=== PATIENT | female | born 1985 | race Caucasian/White ===

== ENCOUNTER 2017-10-11 20:19 | Outpatient (CLI) | payer OTHER ==
[2017-10-11 21:08] LABS: ADD MAN DIFF? NO
[2017-10-11 21:09] LABS: WHITE BLOOD COUNT 7.1 10^3/ul (4.8-10.8)
[2017-10-11 21:09] LABS: BASOPHILS % 0.3 % (0.0-2.0); EOSINOPHILS # 0.1 10^3/ul (0.0-0.5); HEMOGLOBIN 11.4 g/dl (12.0-16.0); LYMPHOCYTES # 0.6 10^3/ul (0.8-2.9); LYMPHOCYTES % 8.4 % (15.0-51.0); MEAN CORPUSCULAR HEMOGLOBIN 27.5 pg (29.0-33.0); MEAN CORPUSCULAR HGB CONC 31.7 g/dl (32.0-37.0); MEAN CORPUSCULAR VOLUME 86.7 fl (82.0-101.0); MEAN PLATELET VOLUME 10.3 fl (7.4-10.4); MONOCYTE # 0.4 10^3/ul (0.3-0.9); NEUTROPHILS % 83.9 % (39.0-77.0); PLATELET COUNT 246 10^3/UL (140-415); RED BLOOD COUNT 4.15 10^6/ul (4.20-5.40); RED CELL DISTRIBUTION WIDTH 12.5 % (11.5-14.5)
[2017-10-11 21:19] LABS: INR 0.93; PROTIME 12.5 Sec (11.9-14.9)
[2017-10-11 21:20] LABS: PARTIAL THROMBOPLASTIN TIME 28.4 Sec (25.0-35.0)
[2017-10-11] MEDS: LACTATED RINGER'S 1,000 ML IV (21:20)
[2017-10-11 21:22] LABS: ADD UMIC YES; UR ASCORBIC ACID NEGATIVE (NEGATIVE); UR BILIRUBIN (Dip) NEGATIVE (NEGATIVE); UR BLOOD (Dip) NEGATIVE (NEGATIVE); UR CLARITY SLIGHTLY CLOUDY (CLEAR); UR COLOR YELLOW (YELLOW); UR GLUCOSE (Dip) NEGATIVE (NEGATIVE); UR KETONES (Dip) NEGATIVE (NEGATIVE); UR LEUKOCYTE ESTERASE (Dip) 2+ Leu/ul (NEGATIVE); UR MUCUS FEW /HPF (NONE SEEN); UR NITRITE (Dip) NEGATIVE (NEGATIVE); UR RBC 1 /HPF (0-5); UR SPECIFIC GRAVITY (Dip) 1.029 (1.003-1.030); UR SQUAMOUS EPITHELIAL CELL FEW /HPF (FEW); UR TOTAL PROTEIN (Dip) 1+ mg/dl (NEGATIVE); UR UROBILINOGEN (Dip) 1+ mg/dL (NEGATIVE); UR WBC 7 /HPF (0-5)
[2017-10-11 21:23] LABS: ALANINE AMINOTRANSFERASE 48 IU/L (13-69); ALBUMIN 3.4 g/dl (3.3-4.9); ALBUMIN/GLOBULIN RATIO 0.91; ALKALINE PHOSPHATASE 258 IU/L (42-121); ANION GAP 16 (8-16); ASPARTATE AMINO TRANSFERASE 24 IU/L (15-46); BLOOD UREA NITROGEN 15 mg/dl (7-20); CALCIUM 9.1 mg/dl (8.4-10.2); CARBON DIOXIDE 23 mmol/L (21-31); CHLORIDE 106 mmol/L (97-110); CREATININE 0.79 mg/dl (0.44-1.00); GLUCOSE 101 mg/dl (70-220); POTASSIUM 4.1 mmol/L (3.5-5.1); SODIUM 141 mmol/L (135-144); TOTAL PROTEIN 7.1 g/dl (6.1-8.1); URIC ACID 4.6 mg/dl (3.1-7.9)
== END 2017-10-11 22:30 | disposition home or self-care (01) ==
LOC: OBT 20:19 → L-D 20:21 → OBT 22:30
DX: O10.913 Unspecified pre-existing hypertension complicating pregnancy, third trimester (principal); O26.893 Other specified pregnancy related conditions, third trimester; L29.9 Pruritus, unspecified; R06.02 Shortness of breath; R51 Headache; R06.2 Wheezing; Z3A.34 34 weeks gestation of pregnancy
CPT/HCPCS: 36415; 76818; 80053; 81001; 84560; 85025; 85384; 85610; 85730; 96360

== ENCOUNTER 2017-10-11 22:29 | Emergency (ER) | payer OTHER ==
[2017-10-12] MEDS: ACETAMINOPHEN 500 MG TAB PO (00:03)
[2017-10-12] MEDS: LEVALBUTEROL (NEB) 1.25 MG/0.5 ML AMP HHN (00:19)
[2017-10-12 01:16] LABS: ADD UMIC YES; UR ASCORBIC ACID NEGATIVE (NEGATIVE); UR BACTERIA FEW /HPF (NONE SEEN); UR BILIRUBIN (Dip) NEGATIVE (NEGATIVE); UR BLOOD (Dip) NEGATIVE (NEGATIVE); UR CLARITY CLEAR (CLEAR); UR COLOR YELLOW (YELLOW); UR GLUCOSE (Dip) NEGATIVE (NEGATIVE); UR KETONES (Dip) NEGATIVE (NEGATIVE); UR LEUKOCYTE ESTERASE (Dip) 1+ Leu/ul (NEGATIVE); UR NITRITE (Dip) NEGATIVE (NEGATIVE); UR RBC 1 /HPF (0-5); UR SPECIFIC GRAVITY (Dip) 1.026 (1.003-1.030); UR SQUAMOUS EPITHELIAL CELL FEW /HPF (FEW); UR TOTAL PROTEIN (Dip) 1+ mg/dl (NEGATIVE); UR UROBILINOGEN (Dip) 1+ mg/dL (NEGATIVE); UR WBC 11 /HPF (0-5)
== END 2017-10-12 03:19 | disposition home or self-care (01) ==
LOC: FTE 10-12 03:19
DX: J06.9 Acute upper respiratory infection, unspecified (principal); N39.0 Urinary tract infection, site not specified; E66.01 Morbid (severe) obesity due to excess calories; I10 Essential (primary) hypertension; Z68.41 Body mass index [BMI] 40.0-44.9, adult; Z79.82 Long term (current) use of aspirin
CPT/HCPCS: 81001; 87400; 93005; 94664; 99284-25

== ENCOUNTER 2017-11-09 03:09 | Inpatient (IN) | payer OTHER ==
[2017-11-09] MEDS: LACTATED RINGER'S 1,000 ML IV ×3 (04:10→19:15)
[2017-11-09 04:21] LABS: ADD MAN DIFF? NO
[2017-11-09 04:23] LABS: BASOPHILS % 0.3 % (0.0-2.0); EOSINOPHILS # 0.1 10^3/ul (0.0-0.5); HEMATOCRIT 36.3 % (37.0-47.0); HEMOGLOBIN 11.7 g/dl (12.0-16.0); LYMPHOCYTES % 16.7 % (15.0-51.0); MEAN CORPUSCULAR HEMOGLOBIN 27.1 pg (29.0-33.0); MEAN CORPUSCULAR HGB CONC 32.2 g/dl (32.0-37.0); MEAN PLATELET VOLUME 10.8 fl (7.4-10.4); MONOCYTE # 0.4 10^3/ul (0.3-0.9); MONOCYTES % 6.7 % (0.0-11.0); NEUTROPHIL # 4.3 10^3/ul (1.6-7.5); NEUTROPHILS % 73.8 % (39.0-77.0); PLATELET COUNT 255 10^3/UL (140-415); RED BLOOD COUNT 4.32 10^6/ul (4.20-5.40); RED CELL DISTRIBUTION WIDTH 14.7 % (11.5-14.5)
[2017-11-09 04:23] LABS: WHITE BLOOD COUNT 5.9 10^3/ul (4.8-10.8)
[2017-11-09 04:42] LABS: ADD UMIC YES; UR ASCORBIC ACID NEGATIVE (NEGATIVE); UR BACTERIA FEW /HPF (NONE SEEN); UR BILIRUBIN (Dip) NEGATIVE (NEGATIVE); UR BLOOD (Dip) NEGATIVE (NEGATIVE); UR CLARITY SLIGHTLY CLOUDY (CLEAR); UR COLOR YELLOW (YELLOW); UR GLUCOSE (Dip) NEGATIVE (NEGATIVE); UR KETONES (Dip) NEGATIVE (NEGATIVE); UR LEUKOCYTE ESTERASE (Dip) NEGATIVE Leu/ul (NEGATIVE); UR MUCUS FEW /HPF (NONE SEEN); UR NITRITE (Dip) NEGATIVE (NEGATIVE); UR RBC 1 /HPF (0-5); UR SPECIFIC GRAVITY (Dip) 1.023 (1.003-1.030); UR SQUAMOUS EPITHELIAL CELL FEW /HPF (FEW); UR TOTAL PROTEIN (Dip) 2+ mg/dl (NEGATIVE); UR UROBILINOGEN (Dip) 1+ mg/dL (NEGATIVE); UR WBC 2 /HPF (0-5)
[2017-11-09 04:45] LABS: INR 0.86; PARTIAL THROMBOPLASTIN TIME 28.3 Sec (25.0-35.0); PROTIME 11.8 Sec (11.9-14.9); PT RATIO 0.9
[2017-11-09 04:50] LABS: ALANINE AMINOTRANSFERASE 58 IU/L (13-69); ALBUMIN 3.4 g/dl (3.3-4.9); ALKALINE PHOSPHATASE 334 IU/L (42-121); ANION GAP 15 (8-16); ASPARTATE AMINO TRANSFERASE 38 IU/L (15-46); BILIRUBIN,INDIRECT 0.2 mg/dl (0-1.1); BILIRUBIN,TOTAL 0.2 mg/dl (0.2-1.3); BLOOD UREA NITROGEN 16 mg/dl (7-20); CALCIUM 8.9 mg/dl (8.4-10.2); CARBON DIOXIDE 20 mmol/L (21-31); CHLORIDE 107 mmol/L (97-110); CREATININE 0.64 mg/dl (0.44-1.00); GLUCOSE 91 mg/dl (70-220); POTASSIUM 3.7 mmol/L (3.5-5.1); SODIUM 138 mmol/L (135-144); TOTAL PROTEIN 6.8 g/dl (6.1-8.1); URIC ACID 4.7 mg/dl (3.1-7.9)
[2017-11-09] MEDS ORDERED: OXYTOCIN 30 UNITS/LR 500 ML IV ×2 (06:00→19:30)
[2017-11-09] MEDS ORDERED: METHYLERGONOVINE 0.2 MG INJ IM (06:00)
[2017-11-09] MEDS ORDERED: CARBOPROST 250 MCG INJ IM ×2 (06:00→19:30)
[2017-11-09] MEDS ORDERED: MISOPROSTOL 200 MCG TAB PR ×2 (06:00→19:30)
[2017-11-09] MEDS ORDERED: OXYTOCIN 10 UNIT INJ ×2 (07:00→15:33)
[2017-11-09 10:52] LABS: RUPTURE FETAL MEMBRANES NEGATIVE (NEGATIVE)
[2017-11-09] MEDS ORDERED: BUTORPHANOL 2 MG INJ IV (11:00)
[2017-11-09 12:43] LABS: HEMOGLOBIN A1C 5.4 % (0-5.9)
[2017-11-09 13:33] LABS: FREE T4 (FREE THYROXINE) 0.85 ng/dl (0.79-2.35)
[2017-11-09 14:54] LABS: AMPHETAMINE/METHAMPHETAMINE Negative (NEGATIVE); BARBITURATES Negative (NEGATIVE); BENZODIAZEPINES Negative (NEGATIVE); CANNABINOIDS Negative (NEGATIVE); COCAINE Negative (NEGATIVE); OPIATES Negative (NEGATIVE)
[2017-11-09] MEDS ORDERED: morphine SULFATE/PF (10 MG/10 ML) INJ (15:32)
[2017-11-09] MEDS ORDERED: ONDANSETRON 4 MG INJ (15:32)
[2017-11-09] MEDS ORDERED: PHENYLephrine (100 MCG/ML) 5ML SYG ×2 (15:33→16:20)
[2017-11-09] MEDS ORDERED: METOCLOPRAMIDE 10 MG INJ (16:21)
[2017-11-09] MEDS ORDERED: ONDANSETRON 4 MG INJ IV (17:00)
[2017-11-09] MEDS ORDERED: morphine 2 MG INJ IV (17:00)
[2017-11-09] MEDS ORDERED: NALOXONE (0.4 MG/ML) INJ IV (17:00)
[2017-11-09] MEDS ORDERED: KETOROLAC 30 MG INJ IV (17:00)
[2017-11-09] MEDS: OXYTOCIN 30 UNITS/LR 500 ML IV (17:11)
[2017-11-09] MEDS: CEFAZOLIN 2 GM/50 ML (PMX) 50 ML IV (17:17)
[2017-11-09] MEDS: DIPHENHYDRAMINE 50 MG INJ IV (17:28)
[2017-11-09] MEDS ORDERED: ACETAMINOPHEN 500 MG TAB PO (19:30)
[2017-11-09] MEDS ORDERED: LANOLIN 7 GM TUBE TOP (19:30)
[2017-11-09 20:24] LABS: ADD MAN DIFF? NO
[2017-11-09 20:33] LABS: WHITE BLOOD COUNT 8.8 10^3/ul (4.8-10.8)
[2017-11-09 20:33] LABS: BASOPHILS % 0.1 % (0.0-2.0); EOSINOPHILS % 0.3 % (0.0-7.0); HEMATOCRIT 36.5 % (37.0-47.0); HEMOGLOBIN 11.8 g/dl (12.0-16.0); LYMPHOCYTES # 0.8 10^3/ul (0.8-2.9); LYMPHOCYTES % 8.6 % (15.0-51.0); MEAN CORPUSCULAR HEMOGLOBIN 27.8 pg (29.0-33.0); MEAN CORPUSCULAR HGB CONC 32.3 g/dl (32.0-37.0); MEAN CORPUSCULAR VOLUME 85.9 fl (82.0-101.0); MONOCYTE # 0.4 10^3/ul (0.3-0.9); MONOCYTES % 4.8 % (0.0-11.0); NEUTROPHIL # 7.5 10^3/ul (1.6-7.5); NEUTROPHILS % 85.4 % (39.0-77.0); PLATELET COUNT 245 10^3/UL (140-415); RED BLOOD COUNT 4.25 10^6/ul (4.20-5.40); RED CELL DISTRIBUTION WIDTH 14.6 % (11.5-14.5)
[2017-11-09] MEDS: ONDANSETRON 4 MG INJ IV (21:10)
[2017-11-09] MEDS: SERTRALINE 50 MG TAB PO (22:34)
[2017-11-10] MEDS: LACTATED RINGER'S 1,000 ML IV ×4 (00:20→20:30)
[2017-11-10] MEDS: ONDANSETRON 4 MG INJ IV (01:32)
[2017-11-10] MEDS: IBUPROFEN 600 MG TAB PO ×4 (06:00→17:17)
[2017-11-10] MEDS: SERTRALINE 50 MG TAB PO (08:24)
[2017-11-10] MEDS: DIPHENHYDRAMINE 50 MG CAP PO (10:17)
[2017-11-11] MEDS: HYDROCODONE/APAP (5/325) TAB PO (02:50)
[2017-11-11] MEDS: IBUPROFEN 600 MG TAB PO ×4 (06:50→17:09)
[2017-11-11] MEDS: SERTRALINE 50 MG TAB PO (08:44)
[2017-11-11 09:16] LABS: B-TYPE NATRIURETIC PEPTIDE 132 PG/ML (0-125)
[2017-11-11] MEDS: LACTATED RINGER'S 1,000 ML IV (16:30)
[2017-11-12] MEDS: IBUPROFEN 600 MG TAB PO ×3 (00:33→11:39)
[2017-11-12] MEDS: SERTRALINE 50 MG TAB PO (08:19)
[2017-11-12] MEDS: INFLUENZA VIRUS VACCINE 0.5 ML (DISPENSING) IM* (11:40)
[2017-11-12 12:06] LABS: ADD MAN DIFF? NO
[2017-11-12 12:11] LABS: BASOPHILS % 0.2 % (0.0-2.0); EOSINOPHILS # 0.1 10^3/ul (0.0-0.5); HEMATOCRIT 33.2 % (37.0-47.0); HEMOGLOBIN 10.7 g/dl (12.0-16.0); LYMPHOCYTES # 1.1 10^3/ul (0.8-2.9); LYMPHOCYTES % 19.6 % (15.0-51.0); MEAN CORPUSCULAR HEMOGLOBIN 27.6 pg (29.0-33.0); MEAN CORPUSCULAR HGB CONC 32.2 g/dl (32.0-37.0); MEAN CORPUSCULAR VOLUME 85.6 fl (82.0-101.0); MEAN PLATELET VOLUME 10.5 fl (7.4-10.4); MONOCYTE # 0.5 10^3/ul (0.3-0.9); MONOCYTES % 9.1 % (0.0-11.0); NEUTROPHIL # 3.7 10^3/ul (1.6-7.5); PLATELET COUNT 295 10^3/UL (140-415); RED BLOOD COUNT 3.88 10^6/ul (4.20-5.40); RED CELL DISTRIBUTION WIDTH 15.3 % (11.5-14.5)
[2017-11-12 12:11] LABS: WHITE BLOOD COUNT 5.4 10^3/ul (4.8-10.8)
[2017-11-12 12:32] LABS: ALANINE AMINOTRANSFERASE 73 IU/L (13-69); ALKALINE PHOSPHATASE 217 IU/L (42-121); ANION GAP 12 (8-16); ASPARTATE AMINO TRANSFERASE 43 IU/L (15-46); BLOOD UREA NITROGEN 16 mg/dl (7-20); CALCIUM 9.4 mg/dl (8.4-10.2); CARBON DIOXIDE 25 mmol/L (21-31); CHLORIDE 106 mmol/L (97-110); CREATININE 0.66 mg/dl (0.44-1.00); GLUCOSE 82 mg/dl (70-220); POTASSIUM 4.1 mmol/L (3.5-5.1); SODIUM 139 mmol/L (135-144); TOTAL PROTEIN 6.3 g/dl (6.1-8.1)
[2017-11-12] MEDS: LISINOPRIL 5 MG TAB PO (13:58)
== END 2017-11-12 17:43 | disposition home or self-care (01) | DRG 765 ==
LOC: OBT 03:09 → L-D 03:11 → OBT 05:56 → L-D 05:57 → MS4 20:54
PROC: 10D00Z1 Extraction of Products of Conception, Low, Open Approach (ICD-10-PCS; principal; 2017-11-09 15:00)
PROC: 3E0234Z Introduction of Serum, Toxoid and Vaccine into Muscle, Percutaneous Approach (ICD-10-PCS; 2017-11-09 15:30)
DX: O75.82 Onset (spontaneous) of labor after 37 completed weeks of gestation but before 39 completed weeks gestation, with delivery by (planned) cesarean section (principal); O24.12 Pre-existing type 2 diabetes mellitus, in childbirth; I42.9 Cardiomyopathy, unspecified; Z86.74 Personal history of sudden cardiac arrest; O10.92 Unspecified pre-existing hypertension complicating childbirth; O99.42 Diseases of the circulatory system complicating childbirth; Z68.42 Body mass index [BMI] 45.0-49.9, adult; O34.219 Maternal care for unspecified type scar from previous cesarean delivery; Z37.0 Single live birth; Z3A.38 38 weeks gestation of pregnancy; Z95.810 Presence of automatic (implantable) cardiac defibrillator; Z23 Encounter for immunization; I25.2 Old myocardial infarction; Z82.49 Family history of ischemic heart disease and other diseases of the circulatory system; O99.214 Obesity complicating childbirth; E66.01 Morbid (severe) obesity due to excess calories; O99.284 Endocrine, nutritional and metabolic diseases complicating childbirth; E78.5 Hyperlipidemia, unspecified
CPT/HCPCS: 36415; 71045; 76815; 76818; 80053; 80307; 81001; 82962; 83036; 83880; 84112; 84439; 84443; 84560; 85025; 85384; 85610; 85730; 86850; 86900; 86901; 86920; 88307; 90686; 93005; 93306; 96360; 99464

== ENCOUNTER 2018-06-26 20:13 | Emergency (ER) | payer OTHER ==
[2018-06-26 21:36] LABS: ADD MAN DIFF? NO
[2018-06-26 21:39] LABS: WHITE BLOOD COUNT 8.5 10^3/ul (4.8-10.8)
[2018-06-26 21:39] LABS: BASOPHILS % 0.2 % (0.0-2.0); EOSINOPHILS # 0.1 10^3/ul (0.0-0.5); EOSINOPHILS % 0.8 % (0.0-7.0); HEMATOCRIT 38.9 % (37.0-47.0); HEMOGLOBIN 12.1 g/dl (12.0-16.0); LYMPHOCYTES # 1.8 10^3/ul (0.8-2.9); LYMPHOCYTES % 21.5 % (15.0-51.0); MEAN CORPUSCULAR HEMOGLOBIN 27.9 pg (29.0-33.0); MEAN CORPUSCULAR HGB CONC 31.1 g/dl (32.0-37.0); MEAN CORPUSCULAR VOLUME 89.6 fl (82.0-101.0); MONOCYTE # 0.5 10^3/ul (0.3-0.9); MONOCYTES % 6.1 % (0.0-11.0); NEUTROPHILS % 71.2 % (39.0-77.0); PLATELET COUNT 286 10^3/UL (140-415); RED BLOOD COUNT 4.34 10^6/ul (4.20-5.40); RED CELL DISTRIBUTION WIDTH 12.9 % (11.5-14.5)
[2018-06-26 22:01] LABS: ALANINE AMINOTRANSFERASE 16 IU/L (13-69); ALBUMIN 4.2 g/dl (3.3-4.9); ALBUMIN/GLOBULIN RATIO 1.23; ALKALINE PHOSPHATASE 126 IU/L (42-121); ANION GAP 12 (8-16); ASPARTATE AMINO TRANSFERASE 23 IU/L (15-46); BILIRUBIN,INDIRECT 0.2 mg/dl (0-1.1); BILIRUBIN,TOTAL 0.2 mg/dl (0.2-1.3); BLOOD UREA NITROGEN 19 mg/dl (7-20); CALCIUM 8.6 mg/dl (8.4-10.2); CARBON DIOXIDE 25 mmol/L (21-31); CHLORIDE 108 mmol/L (97-110); CREATININE 0.58 mg/dl (0.44-1.00); GLUCOSE 84 mg/dl (70-220); POTASSIUM 3.7 mmol/L (3.5-5.1); SALICYLATE 1.6 mg/dl (5.0-30.0); SODIUM 141 mmol/L (135-144); TOTAL PROTEIN 7.6 g/dl (6.1-8.1)
[2018-06-26 22:02] LABS: ACETAMINOPHEN < 10.0 ug/ml (10.0-30.0); ETHANOL < 10.0 mg/dl
[2018-06-26 22:14] LABS: ADD UMIC YES; UR ASCORBIC ACID NEGATIVE (NEGATIVE); UR BILIRUBIN (Dip) NEGATIVE (NEGATIVE); UR BLOOD (Dip) 3+ mg/dL (NEGATIVE); UR CLARITY CLEAR (CLEAR); UR COLOR YELLOW (YELLOW); UR GLUCOSE (Dip) NEGATIVE (NEGATIVE); UR KETONES (Dip) NEGATIVE (NEGATIVE); UR LEUKOCYTE ESTERASE (Dip) NEGATIVE Leu/ul (NEGATIVE); UR NITRITE (Dip) NEGATIVE (NEGATIVE); UR RBC 59 /HPF (0-5); UR SPECIFIC GRAVITY (Dip) 1.018 (1.003-1.030); UR SQUAMOUS EPITHELIAL CELL FEW /HPF (FEW); UR TOTAL PROTEIN (Dip) 1+ mg/dl (NEGATIVE); UR UROBILINOGEN (Dip) NEGATIVE (NEGATIVE); UR WBC 4 /HPF (0-5)
[2018-06-26] MEDS: LORAZEPAM 2 MG INJ IM (22:17)
[2018-06-26 22:21] LABS: TROPONIN-I < 0.012 ng/ml (0.000-0.120)
[2018-06-26 22:49] LABS: AMPHETAMINE/METHAMPHETAMINE Negative (NEGATIVE); BARBITURATES Negative (NEGATIVE); BENZODIAZEPINES Negative (NEGATIVE); CANNABINOIDS Negative (NEGATIVE); COCAINE Negative (NEGATIVE); OPIATES Negative (NEGATIVE)
[2018-06-27] MEDS: SERTRALINE 50 MG TAB PO (09:05)
== END 2018-06-27 09:07 ==
LOC: E/R 20:13
DX: F41.9 Anxiety disorder, unspecified (principal); I10 Essential (primary) hypertension; E66.01 Morbid (severe) obesity due to excess calories; Z68.35 Body mass index [BMI] 35.0-35.9, adult
CPT/HCPCS: 36415; 80053; 80307; 81001; 81025; 84484; 84703; 85025; 93005; 96372; 99285-25

== ENCOUNTER 2018-09-07 16:56 | Emergency (ER) | payer OTHER | END 2018-09-07 18:26 | disposition home or self-care (01) | LOC: FTE 16:56 | DX: S16.1XXA Strain of muscle, fascia and tendon at neck level, initial encounter (principal); I25.2 Old myocardial infarction; S39.92XA Unspecified injury of lower back, initial encounter; S09.90XA Unspecified injury of head, initial encounter; V49.88XA Car occupant (driver) (passenger) injured in other specified transport accidents, initial encounter | CPT/HCPCS: 99283 ==